=== PATIENT | male | born 1960 | race Caucasian/White ===

== ENCOUNTER 2017-01-01 03:10 | Emergency (ER) | payer OTHER ==
[~2017-01-01] VITALS: Ht 182.9 cm; Wt 108.9 kg
--- NOTE | 2017-01-01 03:41 | ED CARDIAC/CP/PALPITATIONS ---
See Addendum History of Present Illness General Chief Complaint: Chest Pain Stated Complaint: CP Source: patient Exam Limitations: no limitations Vital Signs & Intake/Output Vital Signs & Intake/Output Vital Signs Date Time Temp Pulse Resp B/P B/P Pulse O2 O2 Flow FiO2 Mean Ox Delivery Rate 01/01 0639 97.8 67 22 146/85 96 01/01 0436 97.8 74 22 158/80 98 01/01 0315 96.7 88 28 206/117 97 Room Air Allergies Coded Allergies: No Known Allergies (01/01/17) Reconcile Medications No Known Home Medications Triage Note: TRIAGE: PT WAS HERE VISITING HIS DAUGHTER WHEN ALL OF A SUDDEN HE DROPPED TO HIS KNEES FROM CHEST PAIN. STATES "I WENT BLACK" FELT "A LITTLE BIT" LIKE HE WAS GOING TO PASS OUT BUT HE "HELD ON". ALSO COMPLAINS OF FEELING SOB. HX OF HTN. MANUAL 186/120. STATES TOOK B/P MED "BACK THEN AND I JUST STOPPED". PT NOW BELCHING, STATES THE PAIN IMPROVES "A LITTLE BIT" AFTER BELCHING. EKG DONE. 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 Triage Nurses Notes Reviewed? yes HPI: Patient presents for evaluation of a sudden onset of severe sharp left chest pain with dyspnea after finding out that his daughter was unresponsive. Patient states although he tried he nearly blacked out, seeing darkness in front of his eyes and dropping to his knees. He is feeling better now. The pain was initially constant but it is now more intermittent pain and described as mild. He denies any associated diaphoresis. Past History Travel History Traveled to [place] past 21 day No Medical History Any Pertinent Medical History? 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 No Review of Systems Review of Systems Constitutional: Reports: no symptoms. EENTM: Reports: no symptoms. Respiratory: Reports: no symptoms. Cardiovascular: Reports: see HPI. GI: Reports: no symptoms. Genitourinary: Reports: no symptoms. Musculoskeletal: Reports: no symptoms. Skin: Reports: no symptoms. Neurological/Psychological: Reports: no symptoms. Hematologic/Endocrine: Reports: no symptoms. Immunologic/Allergic: Reports: no symptoms. All Other Systems: Reviewed and Negative Physical Exam Physical Exam Cardiovascular: SEE BELOW Comments: Gen.: Well-nourished, well-developed, no acute respiratory distress. Head: Normocephalic, atraumatic. Eyes: Normal inspection bilaterally Ears: Normal inspection bilaterally Nose: Normal inspection Throat/mouth : Moist mucosa Neck: Supple, full range of motion, no goiter Heart: Regular rate and rhythm, no murmurs rubs or gallops Lungs: Clear to auscultation bilaterally with normal air entry Chest: Nontender Back: Normal range of motion Abdomen: Soft, nontender, nondistended, normal bowel sounds Extremities: Normal range of motion grossly, equal radial pulses, no cyanosis clubbing or edema Neurologic: Cranial nerves grossly intact, speech is clear Skin: warm and dry Psychiatric: Anxious, cooperative, no apparent delusions or hallucinations Core Measures ACS in differential dx? No Severe Sepsis Present: No Septic Shock Present: No Progress Differential Diagnosis: AMI, unstable angina, ANXIETY Plan of Care: Orders Procedure Date/time Status TROPONIN LEVEL 01/01 0800 Active EKG 01/01 0800 Active Add-on Test (ER Only) 01/[address] ABD & PELVIS W IV CONTRAST 01/01 0603 Active LIPASE 01/01 0349 Complete HEPATIC FUNCTION PANEL 01/01 0349 Complete TROPONIN LEVEL 01/01 0340 Complete MAGNESIUM 01/01 0340 Complete CBC WITHOUT DIFFERENTIAL 01/01 0340 Complete BASIC METABOLIC PANEL 01/01 0340 Complete EKG 01/01 0311 Active Laboratory Tests 01/01/17 0349: Anion Gap 11, Estimated GFR > 60, BUN/Creatinine Ratio 27.5 H, Glucose 124 H, Calcium 8.9, Magnesium 2.0, Total Bilirubin 0.5, Direct Bilirubin 0.3, AST 26, ALT 45, Alkaline Phosphatase 103, Troponin I < 0.01, Total Protein 6.9, Albumin 4.1, Lipase 185, CBC w Diff NO MAN DIFF REQ, RBC 4.98, MCV 84.5, MCH 29.3, RDW 13.6, MPV 9.0, Gran % 48.6, Lymphocytes % 42.5, Monocytes % 5.9, Eosinophils % 1.8, Basophils % 1.2, Absolute Granulocytes 2.6, Absolute Lymphocytes 2.3, Absolute Monocytes 0.3, Absolute Eosinophils 0.1, Absolute Basophils 0.1, PUBS MCHC 34.6 Diagnostic Imaging: Discussed w/RAD: Radiology Read. CXR Impression: PATIENT: EMMA BONNER PRESENT AGE: 56 PATIENT ACCOUNT NO: [id number] : 61 LOCATION: [facility] ORDERING PHYSICIAN: RICHARD CARBONE MD SERVICE DATE: 01/01/17 EXAM TYPE: RAD - XRY-PORTABLE CHEST XRAY EXAMINATION: XR PORTABLE CHEST CLINICAL INFORMATION: Sudden sharp left chest pain. COMPARISON: None TECHNIQUE: Portable frontal view of the chest was obtained. FINDINGS: Low lung volumes. There is no focal consolidation, pleural effusion, or pneumothorax. Lung bases are of scattered by overlying soft tissues. Cardiac silhouette size is normal. There are no acute osseous findings. IMPRESSION: Low lung volumes with no acute pulmonary process. DICTATED BY: RICHARD VICENTE MD DATE/TIME DICTATED:01/01/17424 PRODUCER DIRECTOR:KAILA DATE/TIME TRANSCRIBED:01/01/17424 CONFIDENTIAL, DO NOT COPY WITHOUT APPROPRIATE AUTHORIZATION. <Electronically signed in Other Vendor System> SIGNED BY: RICHARD VICENTE MD 01/01/17429 Initial ED EKG: NSR, rate (86) Comments: 01/01/2017 6:00:49 AM I have updated plan on his test results. He is pain free but now complains of left lower quadrant abdominal pain present for at least a year. He states he gets worse when he goes to the gym and with standing for a prolonged period. He is concerned about a hernia. Physical examination is suspicious for a left inguinal hernia. I will order a workup including CAT scan. 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 Departure Departure Disposition: STILL A PATIENT Condition: Stable Clinical Impression Primary Impression: Chest pain Qualifiers: Chest pain type: other chest pain Qualified Code: R07.89 - Other chest pain Secondary Impressions: Anxiety Referrals: PATIENT HAS NO PRIMARY CARE DR (PCP/Family) Departure Forms: Customer Survey General Discharge Information Prescriptions: Current Visit Scripts No Known Home Medications Critical Care Note Critical Care Note Critical Care Time: non-applicable
[2017-01-01 03:55] LABS: ABSOLUTE BASOPHIL COUNT 0.1 /CUMM (0.0-0.2); ABSOLUTE EOSINOPHIL COUNT 0.1 /CUMM (0.0-0.7); ABSOLUTE GRANULOCYTE CT 2.6 /CUMM (1.4-6.5); ABSOLUTE LYMPH COUNT 2.3 /CUMM (1.2-3.4); ABSOLUTE MONOCYTE COUNT 0.3 /CUMM (0.10-0.60); BASOPHIL % 1.2 % (0.0-2.0); EOSINOPHIL % 1.8 % (0-5); GRANULOCYTE % 48.6 % (42.2-75.2); HEMATOCRIT 42.1 % (42-52); MEAN CORPUSCULAR HGB 29.3 PG (27.0-31.0); MEAN CORPUSCULAR HGB CONC 34.6 G/DL (33.0-37.0); MEAN CORPUSCULAR VOLUME 84.5 FL (80.0-94.0); PLATELET COUNT 192 /CUMM (130-400); RBC DISTRIBUTION WIDTH 13.6 % (11.5-14.5); RED BLOOD CELL CT 4.98 /CUMM (4.70-6.10); WHITE BLOOD CELL COUNT 5.4 /CUMM (4.8-10.8)
--- NOTE | 2017-01-01 04:30 | RADIOLOGY REPORT ---
EXAMINATION: XR PORTABLE CHEST CLINICAL INFORMATION: Sudden sharp left chest pain. COMPARISON: None TECHNIQUE: Portable frontal view of the chest was obtained. FINDINGS: Low lung volumes. There is no focal consolidation, pleural effusion, or pneumothorax. Lung bases are of scattered by overlying soft tissues. Cardiac silhouette size is normal. There are no acute osseous findings. IMPRESSION: Low lung volumes with no acute pulmonary process.
--- NOTE | 2017-01-01 07:44 | CT SCAN REPORT ---
EXAMINATION: CT ABDOMEN AND PELVIS WITH CONTRAST CLINICAL INFORMATION: Left lower quadrant pain. COMPARISON: None. TECHNIQUE: Contiguous axial thin section helical images of the abdomen and pelvis were performed following the administration of 95 mL of intravenous Optiray 320. The data set was reformatted in the coronal and sagittal planes and reviewed on an independent workstation. Following the administration of IV contrast, the patient reported itchiness. This information was relayed to the patient's nurse, RORO Drew. The patient left the CT suite in stable condition. DLP: 738 mGy-cm. FINDINGS: The visualized lung bases are clear. The visualized portions of the heart are unremarkable. The liver is of normal size and attenuation without intrahepatic biliary ductal dilation. Within the dome of the right lobe of the liver, there is a 7 mm low-attenuation lesion which is too small to fully characterize. Within the midportion of the right lobe of the liver, there is a 1.5 cm low-attenuation lesion which is nonspecific following contrast administration. A normal gallbladder is identified. There is no wall thickening or discernible pericholecystic fluid. The spleen, pancreas, adrenal glands are unremarkable. Both kidneys are of normal size and attenuation without hydronephrosis. There is a 3 mm nonobstructive calculus within the upper pole of the left kidney. Following the administration of IV contrast, prompt symmetric nephrograms are displayed. There is no abdominal free fluid. There is neither mesenteric nor retroperitoneal lymphadenopathy. There is diverticulosis without evidence of diverticulitis. Otherwise, unremarkable unopacified loops of small and large bowel are identified. A normal appendix is identified. There is no pelvic free fluid. The urinary bladder is unremarkable. There is neither pelvic nor inguinal lymphadenopathy. Bone windows: Neither sclerotic nor lytic bone lesions are identified. There is multilevel disc height loss within the lumbar spine with mild anterior osteophyte formation. IMPRESSION: Sigmoid diverticulosis without evidence of diverticulitis. No evidence for acute abdominal or pelvic inflammatory or infectious processes. 3 mm nonobstructive left renal calculus. Low-attenuation lesions within the liver which are too small to fully characterize following the administration of IV contrast, but statistically likely likely represent cysts.
[2017-01-01 09:15] VITALS: BP 146/88
== END 2017-01-01 09:16 ==
LOC: ERH 03:10
PROVIDERS: Emergency Medicine
DX: R07.9 Chest pain, unspecified (principal); F41.9 Anxiety disorder, unspecified
CPT/HCPCS: 74177; 93005; 93010